=== PATIENT | female | born 1935 | race Caucasian/White ===

== ENCOUNTER 2019-06-27 04:10 | Outpatient (RCR) | payer MEDICAID, SELFPAY | END 2019-07-19 00:01 | LOC: LAB 04:10 | PROVIDERS: Family Provider Family Medicine; Visit Provider Nurse Practitioner Family | DX: R63.4 Abnormal weight loss (principal); I48.91 Unspecified atrial fibrillation; N39.0 Urinary tract infection, site not specified; E11.22 Type 2 diabetes mellitus with diabetic chronic kidney disease; I12.9 Hypertensive chronic kidney disease with stage 1 through stage 4 chronic kidney disease, or unspecified chronic kidney disease; N18.9 Chronic kidney disease, unspecified | CPT/HCPCS: 36415; 84134 ==

== ENCOUNTER 2020-04-28 22:11 | Inpatient (IN) | payer MEDICAID, SELFPAY ==
--- NOTE | 2020-04-28 22:15 | PC.NURSE ---
pre-existing pressure wound noted to coccyx area
--- NOTE | 2020-04-28 22:26 | XRR_ITS ---
PROCEDURE INFORMATION: Exam: XR Chest, 1 View Exam date and time: 04/28/2020 10:29 PM Age: 84 years old Clinical indication: Fever; Prior surgery; Surgery date: 6+ months; Surgery type: Pacer; Patient HX: Unresponsive - ? sepsis; Additional info: Altered mental status TECHNIQUE: Imaging protocol: XR of the chest Views: 1 view. COMPARISON: No relevant prior studies available. FINDINGS: Tubes, catheters and devices: A pacemaker device is present, and its leads are in appropriate position. Lungs: The lungs are hyperinflated with interstitial prominence compatible with mild fibrosis versus atelectasis. There is no lobar consolidation. Pulmonary vascularity is within normal limits. Pleural space: Unremarkable. No pleural effusion. No pneumothorax. Heart/Mediastinum: Unremarkable. No cardiomegaly. Bones/joints: Osteopenia and diffuse moderate to severe degenerative changes are noted. XR/XR chest 1V portable [id number] IMPRESSION: The lungs are hyperinflated with interstitial prominence compatible with mild fibrosis versus atelectasis.
[2020-04-28 22:27] VITALS: BP 75/42; PULSE 96; RESP 18; TEMP 38.2; O2SAT 95; BMI 31.3
--- NOTE | 2020-04-28 22:28 | ECG_ITS ---
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 Measurements Intervals [place] Rate: 88 P: -84 AL: 142 QRS: -6 QRSD: 94 T: 49 QT: 384 QTc: 466 Interpretive Statements ECTOPIC ATRIAL RHYTHM NONSPECIFIC ST & T-WAVE ABNORMALITY Compared to ECG 02/10/2017 14:18:10 T-wave abnormality now present Electronically Signed On 04-29-2020 18:16:03 CDT by Selma Rosas M.D. [id number]
--- NOTE | 2020-04-28 22:29 | CTR_ITS ---
PROCEDURE INFORMATION: Exam: CT Head Without Contrast Exam date and time: 04/28/2020 10:35 PM Age: 84 years old Clinical indication: Altered mental status/memory loss; Confusion or disorientation; Patient HX: Nh PT unresponsive, ? sepsis; Additional info: AMS TECHNIQUE: Imaging protocol: Computed tomography of the head without contrast. Radiation optimization: All CT scans at this facility use at least one of these dose optimization techniques: automated exposure control; mA and/or kV adjustment per patient size (includes targeted exams where dose is matched to clinical indication); or iterative reconstruction. COMPARISON: CT head wo con* [id number] 06/03/2017 4:35 PM RADIATION DOSE METRICS: Total DLP (mGy-cm): 915.82 FINDINGS: Brain: There is volume loss and periventricular low density compatible with chronic small vessel disease changes. There is no acute hemorrhage, edema or mass effect. There is unchanged encephalomalacia in the right frontal lobe. Cerebral ventricles: No ventriculomegaly. Bones/joints: Unremarkable. No acute fracture. Paranasal sinuses: There is a small air-fluid level in the left maxillary sinus. Mastoid air cells: Visualized mastoid air cells are well aerated. Soft tissues: Unremarkable. CT/CT head wo con* [id number] IMPRESSION: 1. No acute intracranial abnormality. 2. There is a small air-fluid level in the left maxillary sinus. Radiation Dose CTDIVOL = (mGy): DLP = 915.82 (mGy-cm)
[2020-04-28 22:38] LABS: ABG PCO2 26.9 mmHg (35-45); ABG PH Result 7.38 (7.35-7.45); Base Excess ABG -7.6 mmol/L (-2.0-2.0); Blood Gas Allen Test Pos; Blood Gas Sample Site Radial, right; Blood Gas Sample Type Arterial; HCO3 ABG 15.9 mmol/L (22-26); Oxygen Device NC; PO2 ABG 87.7 mmHg (80.0-100.0)
[2020-04-28 22:46] LABS: Basophils % 0.5 %; Eosinophils % 0.3 %; Hematocrit 42.4 % (37.0-47.0); Hemoglobin 13.1 g/dL (11.5-15.3); Lymphocytes # 0.4 10^3/uL (0.8-4.8); Lymphocytes % 5.5 %; Mean Corpuscular HGB Conc 30.9 g/dL (30.0-36.0); Mean Corpuscular Hemoglobin 29.9 pg (28.0-34.0); Mean Corpuscular Volume 96.8 fL (81-99); Mean Platelet Volume 11.7 fL (7.4-10.4); Monocytes # 0.3 10^3/uL (0.2-0.9); Monocytes % 3.9 %; Neutrophils # 6.78 10^3/uL (1.8-7.7); Neutrophils % 89.3 %; Nucleated Red Blood Cells % 0 %; Platelet Count 166 10^3/cmm (130-400); Red Blood Count 4.38 10^6/uL (4.1-5.3); Red Cell Distribution Width 13.5 % (12.1-15.1); White Blood Count 7.6 10^3/uL (4.0-10.0)
[2020-04-28 23:02] LABS: INR 1.68 (0.8-1.2)
[2020-04-28] MEDS: vancomycin 1,000 MG in sodium chloride 0.9% 250 ML 250 MG IV (23:02)
[2020-04-28] MEDS: sodium chloride 0.9% 1,000 ML 999 ML IV (23:02)
[2020-04-28] MEDS: ondansetron 2 mg/ML SDV 2 mL 4 MG IVP (23:03)
--- NOTE | 2020-04-28 23:07 | W.ED.GENADLT ---
HPI - General Adult General: Chief complaint: General Medical Stated complaint: POSSIBLE SEPSIS Time Seen by Provider: 04/28/20 22:23 Source: patient and EMS Mode of arrival: EMS Limitations: altered mental status History of Present Illness: HPI narrative: Ms. Fenton is an 84-year-old female sent in by [facility] with report of altered mental status. She was diagnosed with a urinary tract infection approximately 3 to 4 days ago started on Macrobid for E. coli that grew out of her urine. It was susceptible to Macrobid but despite the medicine the patient has progressively declined. She is become more sleepy and somnolent and less interactive. She is not wanting to eat or drink much. Tonight she had a fever and was hypotensive and they elected to send her here to the hospital. On arrival the patient is lethargic but does respond to verbal stimuli and answers basic yes/no questions. Further history is taken from longterm paperwork and old information in the computer system. Patient arrives lethargic, hypotensive and appears severely ill. Review of Systems General: Reports: ROS unobtainable due to mental status PFSH ED PFSH: Medical History (Updated 04/28/20 @ 23:09 by Isabelle Simeon) Diabetes mellitus Glaucoma History of recurrent UTIs Hypertension Surgical History (Updated 04/28/20 @ 23:09 by Isabelle Simeon) H/O knee surgery H/O: hysterectomy Physical Exam Const: COMMON NORMALS: alert GENERAL APPEARANCE: lethargic NUTRITIONAL APPEARANCE: obese ORIENTATION/CONSCIOUSNESS: Yes lethargic HENMT: COMMON NORMALS: normocephalic, atraumatic, external ears normal, EAC's normal and Normal external nose present HEAD & SCALP: normal to inspection, normocephalic and atraumatic FACE & SINUS: normal facial exam and face symmetric NOSE: Normal external nose present and Normal nares present EXTERNAL EAR: Yes external ears normal EXTERNAL AUDITORY CANAL: EAC's normal MOUTH: lip normal, tongue normal and Abnormal oral and palatal mucosa present other (Dry) Eye: COMMON NORMALS: Equal, round and reactive pupils present and conjunctivae normal GENERAL EYE: appearance normal, both eyes and all related structures ALIGNMENT: Yes alignment normal PERIORBITAL: periorbital findings normal EYELID: eyelids normal CONJUNCTIVA: Yes conjunctivae normal SCLERA: sclerae normal PUPIL: Yes Equal, round and reactive pupils present Neck/C-Spine: COMMON NORMALS: full ROM, no lymphadenopathy, supple, no meningeal signs and no JVD GENERAL: Yes normal visual inspection and Yes trachea midline Chest: COMMONS NORMALS: normal inspection of the chest and normal palpation of entire chest wall Resp: COMMON NORMALS: normal respiratory effort, No retractions, No use of accessory muscles and clear to auscultation bilaterally EFFORT & INSPECTION: Yes able to speak in complete sentences and Yes symmetric chest movement AUSCULTATION: clear to auscultation bilaterally, no crackles, no rales, no rhonchi and no wheezes Cardio: COMMON NORMALS: no JVD, regular rate, regular rhythm, S1 normal heart sound present and S2 normal heart sound present RATE: regular rate RHYTHM: regular rhythm HEART SOUNDS: S1 normal heart sound present, S2 normal heart sound present, no click, no gallops, no murmurs and no rubs GI: COMMON NORMALS: Soft to palpation and No hepatosplenomegaly present PALPATION: Yes Soft to palpation, No Tenderness to palpation present (GI), No Guarding due to palpation present (GI), No Rigid due to palpation, Yes No hepatosplenomegaly present, No Hernia present, No Palpable mass present and No Pulsatile mass present : COMMON NORMALS: Yes no CVA tenderness BLADDER/KIDNEY EXAM: Yes no CVA tenderness EXTERNAL FEMALE EXAM: No Hernia present Back/Pelvis: COMMON NORMALS: no CVA tenderness Extremity: COMMON NORMALS: normal to inspection, full ROM, capillary refill normal, no joint enlargement, no clubbing, cyanosis or edema and no calf tenderness Neuro: COMMON NORMALS: CN's II-XII intact bilaterally, moves all extremities, no focal motor deficits and no sensory deficits noted SENSORIUM/ORIENTATION: Yes alert and Yes lethargic MENINGEAL SIGNS: Yes no meningeal signs SPEECH: speech normal Skin: COMMON NORMALS: no rashes or lesions noted, turgor normal, no jaundice, no petechiae and no mottling GENERAL SKIN EXAM: no rashes or lesions noted and turgor normal Course ED course: 2316 -Case reviewed with the patient's power of assistant county attorney Sarah Fenton, she concurs the patient is to be a DNR and does not want to be intubated for any reason. She is okay with vasopressors as long as they run through a peripheral line and does not want invasive procedures such as central line. Vital Signs: Vital signs: Vital Signs Temperature 100.7 F H 04/28/20 22:27 Pulse Rate 90 04/28/20 23:30 Respiratory Rate 15 04/28/20 23:30 Blood Pressure 91/50 04/28/20 23:30 Pulse Oximetry 97 04/28/20 23:30 MDM - General Adult MDM Narrative: Medical decision making narrative: Mrs. Fenton is a nice 84-year-old female who comes in with a previously diagnosed UTI from an outpatient setting. He is febrile and hypotensive here all these findings are consistent with sepsis caused by the UTI. Given her dose of Primaxin here and she is receiving the sepsis bolus of IV fluids and at this time she is not necessitating any IV vasopressors. I have discussed her care with the family and they do not want to be aggressive with intubation, central lines or other more invasive therapies. They are okay with peripheral vasopressors for a short time. I have endorsed the case to Dr. Stoddard he is agreeable to admission for further evaluation and care. Lab Data: Attestation: I reviewed the patient's lab results. Labs: Lab Results 04/28/20 04/28/20 04/28/20 Range/Units 22:30 22:30 22:30 WBC 7.6 (4.0-10.0) 10^3/ uL RBC 4.38 (4.1-5.3) 10^6/u L Hgb 13.1 (11.5-15.3) g/dL Hct 42.4 (37.0-47.0) % MCV 96.8 (81-99) fL MCH 29.9 (28.0-34.0) pg MCHC 30.9 (30.0-36.0) g/dL RDW 13.5 (12.1-15.1) % Plt Count 166 (130-400) 10^3/c mm MPV 11.7 H (7.4-10.4) fL Neut % (Auto) 89.3 % Lymph % (Auto) 5.5 % [place] % (Auto) 3.9 % Eos % (Auto) 0.3 % Baso % (Auto) 0.5 % Neut # (Auto) 6.78 (1.8-7.7) 10^3/u L Lymph # (Auto) 0.4 L (0.8-4.8) 10^3/u L [place] # (Auto) 0.3 (0.2-0.9) 10^3/u L Eos # (Auto) 0.0 (0.0-0.8) 10^3/u L Baso # (Auto) 0.0 (0.0-0.1) 10^3/u L Nucleated RBC % (a uto) 0 % Nucleated RBCs # 0.0 /100WBC PT 20.30 H (12.1-14.9) SECO NDS INR 1.68 H (0.8-1.2) Specimen Type Arterial Sample Site Radial, right ABG pH 7.38 (7.35-7.45) ABG pCO2 26.9 L (35-45) mmHg ABG pO2 87.7 (80.0-100.0) mmH g ABG HCO3 15.9 L (22-26) mmol/L ABG Base Excess -7.6 L (-2.0-2.0) mmol/ L Rolf Test Pos Hematocrit 41.0 (37-47) % O2 Delivery Device Nc O2 Liters/Min 2.0 % Rod Puller And Coiler ID ellpe Sodium (136-145) mmol/L Potassium (3.5-5.1) mmol/L Chloride (98-107) mmol/L Carbon Dioxide (22-29) mmol/L Anion Gap (5-19) BUN (8-23) mg/dL Creatinine (0.5-0.9) mg/dL GFR Calculation Glucose (65-115) mg/dL Calculated Osmolal ity (285-295) mOsm/k g Lactic Acid (0.5-2.2) mmol/L Calcium (8.5-10.5) mg/dL Magnesium (1.7-2.3) mg/dL Total Bilirubin (0.15-1.2) mg/dL AST (0-32) U/L ALT (0-33) U/L Alkaline Phosphata se (35-105) IU/L Troponin T Baselin e (0-10) ng/L Total Protein (6.6-8.7) g/dL Albumin (3.5-5.2) g/dL Globulin (1.3-4.6) g/dL Lipase (13-60) U/L Urine Color (Yellow) Urine Appearance (CLEAR) Urine pH (5-7) Ur Specific Gravit y (1.005-1.030) Urine Protein (Negative) Urine Glucose (UA) (Normal) Urine Ketones (Negative) Urine Blood (Negative) Urine Nitrate (Negative) Urine Bilirubin (Negative) Urine Urobilinogen (Negative) mg/dL Ur Leukocyte Bety ase (Negative) Urine RBC (0-2) /hpf Urine WBC (0-5) /hpf Ur Squamous Epith Cells (0-5) /hpf Amorphous Sediment Urine Bacteria (NONE) /hpf Urine Mucus /hpf 04/28/20 04/28/20 04/28/20 Range/Units 22:30 22:30 22:30 WBC (4.0-10.0) 10^3/ uL RBC (4.1-5.3) 10^6/u L Hgb (11.5-15.3) g/dL Hct (37.0-47.0) % MCV (81-99) fL MCH (28.0-34.0) pg MCHC (30.0-36.0) g/dL RDW (12.1-15.1) % Plt Count (130-400) 10^3/c mm MPV (7.4-10.4) fL Neut % (Auto) % Lymph % (Auto) % [place] % (Auto) % Eos % (Auto) % Baso % (Auto) % Neut # (Auto) (1.8-7.7) 10^3/u L Lymph # (Auto) (0.8-4.8) 10^3/u L [place] # (Auto) (0.2-0.9) 10^3/u L Eos # (Auto) (0.0-0.8) 10^3/u L Baso # (Auto) (0.0-0.1) 10^3/u L Nucleated RBC % (a uto) % Nucleated RBCs # /100WBC PT (12.1-14.9) SECO NDS INR (0.8-1.2) Specimen Type Sample Site ABG pH (7.35-7.45) ABG pCO2 (35-45) mmHg ABG pO2 (80.0-100.0) mmH g ABG HCO3 (22-26) mmol/L ABG Base Excess (-2.0-2.0) mmol/ L Rolf Test Hematocrit (37-47) % O2 Delivery Device O2 Liters/Min % Rod Puller And Coiler ID Sodium 141 (136-145) mmol/L Potassium 3.7 (3.5-5.1) mmol/L Chloride 113 H (98-107) mmol/L Carbon Dioxide 14 L (22-29) mmol/L Anion Gap 17.7 (5-19) BUN 34 H (8-23) mg/dL Creatinine 1.5 H (0.5-0.9) mg/dL GFR Calculation Not Reportable Glucose 289 H (65-115) mg/dL Calculated Osmolal ity 310 H (285-295) mOsm/k g Lactic Acid 4.2 H* (0.5-2.2) mmol/L Calcium 8.8 (8.5-10.5) mg/dL Magnesium 1.3 L (1.7-2.3) mg/dL Total Bilirubin 0.2 (0.15-1.2) mg/dL AST 18 (0-32) U/L ALT 14 (0-33) U/L Alkaline Phosphata se 79 (35-105) IU/L Troponin T Baselin e 118 H* (0-10) ng/L Total Protein 4.5 L (6.6-8.7) g/dL Albumin 2.8 L (3.5-5.2) g/dL Globulin 1.7 (1.3-4.6) g/dL Lipase 17 (13-60) U/L Urine Color (Yellow) Urine Appearance (CLEAR) Urine pH (5-7) Ur Specific Gravit y (1.005-1.030) Urine Protein (Negative) Urine Glucose (UA) (Normal) Urine Ketones (Negative) Urine Blood (Negative) Urine Nitrate (Negative) Urine Bilirubin (Negative) Urine Urobilinogen (Negative) mg/dL Ur Leukocyte Bety ase (Negative) Urine RBC (0-2) /hpf Urine WBC (0-5) /hpf Ur Squamous Epith Cells (0-5) /hpf Amorphous Sediment Urine Bacteria (NONE) /hpf Urine Mucus /hpf 10/10/20 Range/Units 23:15 WBC (4.0-10.0) 10^3/ uL RBC (4.1-5.3) 10^6/u L Hgb (11.5-15.3) g/dL Hct (37.0-47.0) % MCV (81-99) fL MCH (28.0-34.0) pg MCHC (30.0-36.0) g/dL RDW (12.1-15.1) % Plt Count (130-400) 10^3/c mm MPV (7.4-10.4) fL Neut % (Auto) % Lymph % (Auto) % [place] % (Auto) % Eos % (Auto) % Baso % (Auto) % Neut # (Auto) (1.8-7.7) 10^3/u L Lymph # (Auto) (0.8-4.8) 10^3/u L [place] # (Auto) (0.2-0.9) 10^3/u L Eos # (Auto) (0.0-0.8) 10^3/u L Baso # (Auto) (0.0-0.1) 10^3/u L Nucleated RBC % (a uto) % Nucleated RBCs # /100WBC PT (12.1-14.9) SECO NDS INR (0.8-1.2) Specimen Type Sample Site ABG pH (7.35-7.45) ABG pCO2 (35-45) mmHg ABG pO2 (80.0-100.0) mmH g ABG HCO3 (22-26) mmol/L ABG Base Excess (-2.0-2.0) mmol/ L Rolf Test Hematocrit (37-47) % O2 Delivery Device O2 Liters/Min % Rod Puller And Coiler ID Sodium (136-145) mmol/L Potassium (3.5-5.1) mmol/L Chloride (98-107) mmol/L Carbon Dioxide (22-29) mmol/L Anion Gap (5-19) BUN (8-23) mg/dL Creatinine (0.5-0.9) mg/dL GFR Calculation Glucose (65-115) mg/dL Calculated Osmolal ity (285-295) mOsm/k g Lactic Acid (0.5-2.2) mmol/L Calcium (8.5-10.5) mg/dL Magnesium (1.7-2.3) mg/dL Total Bilirubin (0.15-1.2) mg/dL AST (0-32) U/L ALT (0-33) U/L Alkaline Phosphata se (35-105) IU/L Troponin T Baselin e (0-10) ng/L Total Protein (6.6-8.7) g/dL Albumin (3.5-5.2) g/dL Globulin (1.3-4.6) g/dL Lipase (13-60) U/L Urine Color Yellow (Yellow) Urine Appearance Sl cloudy A (CLEAR) Urine pH 5 (5-7) Ur Specific Gravit y 1.020 (1.005-1.030) Urine Protein 1+ H (Negative) Urine Glucose (UA) Norm (Normal) Urine Ketones 1+ H (Negative) Urine Blood 3+ H (Negative) Urine Nitrate Negative (Negative) Urine Bilirubin 1+ H (Negative) Urine Urobilinogen Norm (Negative) mg/dL Ur Leukocyte Bety ase 2+ H (Negative) Urine RBC Too numerous to c nt H (0-2) /hpf Urine WBC Too numerous to c nt H (0-5) /hpf Ur Squamous Epith Cells None (0-5) /hpf Amorphous Sediment Not Reportable Urine Bacteria 4+ H (NONE) /hpf Urine Mucus 2+ /hpf EKG Data^: EKG 1: Attestation: I personally reviewed and interpreted this EKG as follows: EKG interpretation date: 04/28/20 EKG interpretation time: 23:11 Interpretation: Normal sinus rhythm at 88 beats a minute, no blocks, normal intervals, no acute ST or T wave changes. Computer generated interpretation: Chest X-Ray 04/28/20 22:26 IMPRESSION: The lungs are hyperinflated with interstitial prominence compatible with mild fibrosis versus atelectasis. Head CT 04/28/20 22:29 IMPRESSION: 1. No acute intracranial abnormality. 2. There is a small air-fluid level in the left maxillary sinus. Radiation Dose CTDIVOL = (mGy): DLP = 915.82 (mGy-cm) Coding Level of Care Code ED Chucking Machine Set Up Operator Tool for Chg Fwd Exam Comprehensive
[2020-04-28 23:08] VITALS: BP 69/46; PULSE 90; RESP 15; O2SAT 94
[2020-04-28 23:09] LABS: Lactic Sepsis W/Reflex 4.2 mmol/L (0.5-2.2)
[2020-04-28 23:11] LABS: Alanine Aminotransferase 14 U/L (0-33); Albumin Level 2.8 g/dL (3.5-5.2); Alkaline Phosphatase 79 IU/L (35-105); Anion Gap 17.7 (5-19); Aspartate Amino Transferase 18 U/L (0-32); Blood Urea Nitrogen 34 mg/dL (8-23); Calcium 8.8 mg/dL (8.5-10.5); Carbon Dioxide 14 mmol/L (22-29); Chloride 113 mmol/L (98-107); Globulin 1.7 g/dL (1.3-4.6); Glucose 289 mg/dL (65-115); Lipase 17 U/L (13-60); Magnesium 1.3 mg/dL (1.7-2.3); Osmolality Calculated 310 mOsm/kg (285-295); Potassium 3.7 mmol/L (3.5-5.1); Sodium 141 mmol/L (136-145); Total Bilirubin 0.2 mg/dL (0.15-1.2); Total Protein 4.5 g/dL (6.6-8.7)
[2020-04-28 23:12] VITALS: BMI 21.7
[2020-04-28 23:17] VITALS: BP 75/45; PULSE 90; RESP 17; O2SAT 99
[2020-04-28 23:29] LABS: Troponin(5th) Baseline 118 ng/L (0-10)
[2020-04-28 23:30] VITALS: BP 91/50; PULSE 90; RESP 15; O2SAT 97
[2020-04-28 23:50] LABS: Bilirubin Urine 1+ (Negative); Blood Urine 3+ (Negative); Glucose Urine UA Norm (Normal); Ketones Urine 1+ (Negative); Leukocyte Esterase Urine 2+ (Negative); Nitrate Urine Negative (Negative); Protein Urine 1+ (Negative); Urine Color Yellow (Yellow); Urobilinogen Urine Norm (Negative); pH Urine 5 (5-7)
[2020-04-28 23:51] LABS: Bacteria Urine 4+ /hpf; Mucus Urine 2+ /hpf; RBC Urine TOO NUMEROUS TO CNT /hpf (0-2); WBC Urine TOO NUMEROUS TO CNT /hpf (0-5)
[2020-04-28 23:52] LABS: Add Urine Culture? Yes
[2020-04-29] VITALS (72 sets, daily range): BP systolic 70–141; BP diastolic 38–73; PULSE 59–101; RESP 9–19; TEMP 36.4–36.7; O2SAT 93–100
[2020-04-29] MEDS: sodium chloride 0.9% 1,000 ML 999 ML IV (00:06)
[2020-04-29] MEDS: magnesium sulfate premix 2 GM/50 ML PIGGYBACK IV (00:14)
--- NOTE | 2020-04-29 00:28 | ECG_ITS ---
[facility] Test Date: 2020-04-29 Pat Name: Kelly Fenton Department: Room: ICU11 Gender: Female Medical Administrative: : 1935 Requested By: Isabelle Holland Order Number: [id number] Bhavin MD: Selma Rosas M.D. Measurements Intervals [place] Rate: 76 P: 66 IN: 213 QRS: -11 QRSD: 92 T: 24 QT: 383 QTc: 433 Interpretive Statements SINUS RHYTHM WITH FIRST DEGREE AV BLOCK WITH DEMAND VENTRICULAR PACING LOW QRS VOLTAGE IN PRECORDIAL LEADS [QRS DEFLECTION < 1.0 mV IN CHEST LEADS] NONSPECIFIC ST & T-WAVE ABNORMALITY Compared to ECG 04/28/2020 23:11:14 Low QRS voltage now present Ectopic atrial rhythm no longer present T-wave abnormality still present Electronically Signed On 04-30-2020 20:53:06 CDT by Selma Rosas M.D. [id number]
[2020-04-29 00:30] LABS: Reflex Lactate Order REFLEX LACTIC ORDERD
--- NOTE | 2020-04-29 00:32 | CTR_ITS ---
PROCEDURE INFORMATION: Exam: CT Abdomen And Pelvis Without Contrast Exam date and time: 04/29/2020 1:01 AM Age: 84 years old Clinical indication: Other: Sepsis; Additional info: R/O obstructive uropathy TECHNIQUE: Imaging protocol: Computed tomography of the abdomen and pelvis without contrast. Radiation optimization: All CT scans at this facility use at least one of these dose optimization techniques: automated exposure control; mA and/or kV adjustment per patient size (includes targeted exams where dose is matched to clinical indication); or iterative reconstruction. COMPARISON: CT abdomen pelvis w con* [id number] 09/21/2016 11:47 AM RADIATION DOSE METRICS: Total DLP (mGy-cm): 2015.36 FINDINGS: Lungs: Bibasilar infiltrates versus atelectasis are seen with pleural thickening. A pacemaker is seen. Liver: Normal. No mass. Gallbladder and bile ducts: Multiple tiny calcified gallstones and biliary sludge is present. No ductal dilation. Pancreas: Normal. No ductal dilation. Spleen: Normal. No splenomegaly. Adrenals: Normal. No mass. Kidneys and ureters: Normal. No hydronephrosis. Stomach and bowel: Unremarkable. No obstruction. No mucosal thickening. Appendix: No evidence of appendicitis. Unremarkable appendix. Intraperitoneal space: Unremarkable. No free air. No significant fluid collection. Vasculature: Unremarkable. No abdominal aortic aneurysm. Lymph nodes: Unremarkable. No enlarged lymph nodes. Urinary bladder: The bladder is empty with Rosario catheter in place. Reproductive: The uterus is surgically absent. Unremarkable as visualized. Bones/joints: Multilevel degenerative changes are present. No acute fracture. Soft tissues: Unremarkable. CT/CT abdomen pelvis con [id number] IMPRESSION: 1. No acute findings. Specifically negative for obstructive uropathy. 2. A Rosario catheter is present in the bladder. 3. Gallstones and biliary sludge are seen. 4. The uterus is surgically absent. 5. Bibasilar infiltrates versus atelectasis and pleural thickening is seen. 6. Multilevel degenerative changes are seen in the lumbar spine. Radiation Dose CTDIVOL = (mGy): DLP = 2014.36 (mGy-cm)
[2020-04-29] MEDS: sodium chloride 0.9% 2,721.54 ML 999 ML IV (01:03)
--- NOTE | 2020-04-29 01:50 | PM.HP ---
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 I spoke to patient's nurse at [facility], she tells me that at baseline patient is alert oriented x3, she has had some degree of a slow decline over the last month, Britany lift dependent, can carry a conversations, but has had a slow decline over the last month. There was concerns for UTI over the week, UA drawn on Thursday showed E. coli, patient was placed on Macrobid twice daily. This morning patient according to nurses was doing fine, carry out conversations, had no particular complaints, this evening patient was acting more confused, her blood pressures were in the 70s over 40s, there was concerns for worsening UTI, so patient was brought to the ER for further evaluation. In the ER patient was found to be septic secondary to urinary tract infection, hospitalist team was called for admission. Currently patient is alert oriented x1, does not answer questions appropriately, is confused, niece at bedside. Review of Systems General: Reports: ROS unobtainable due to medical condition Medications/Allergies Allergies Allergy/AdvReac Type Severity Reaction Status Date / Time influenza virus vaccine ts Allergy Unknown Verified 04/28/20 22:34 [id number] (36 mos,up) [From Flulaval] PFSH Acute PFSH: Medical History Diabetes mellitus Glaucoma History of recurrent UTIs Hypertension Surgical History H/O knee surgery H/O: hysterectomy Family History (Updated 04/29/20 @ 01:58 by Jayden Stoddard MD) Other Diabetes Social History (Updated 04/29/20 @ 01:57 by Jayden Stoddard MD) Smoking and tobacco status: never smoked Alcohol intake: never Substance/Drug Use: never Vitals/I&O/Wt Last Vital Signs Temp 100.7 F H 04/28/20 22:27 Pulse 89 04/29/20 01:42 Resp 13 04/29/20 01:42 BP 101/54 04/29/20 01:42 Pulse Ox 98 04/29/20 01:42 04/28/20 04/28/20 04/29/20 14:59 22:59 06:59 Intake Total 2500.318 / 2500.318 Balance 2500.318 / 2500.318 Weight last 48 hrs Weight 88.904 kg Weight 90.718 kg Physical Exam Const: COMMON NORMALS: no acute distress and alert NUTRITIONAL APPEARANCE: obese ORIENTATION/CONSCIOUSNESS: Yes awake and Yes confused; not oriented to person, not oriented to place and not oriented to time HENMT: COMMON NORMALS: normocephalic HEAD & SCALP: normocephalic Eye: COMMON NORMALS: Equal, round and reactive pupils present, EOMs intact bilaterally and no papilledema GENERAL EYE: appearance normal, both eyes and all related structures PUPIL: Yes Equal, round and reactive pupils present DIRECT OPHTHALMOSCOPY: Yes no papilledema Neck/C-Spine: COMMON NORMALS: full ROM, no lymphadenopathy, no JVD and Thyroid normal THYROID: Thyroid normal Lymph: LYMPHATIC: no lymphadenopathy noted Resp: COMMON NORMALS: normal respiratory effort, No retractions, No use of accessory muscles and clear to auscultation bilaterally AUSCULTATION: clear to auscultation bilaterally Cardio: COMMON NORMALS: no JVD, regular rate, regular rhythm, S1 normal heart sound present, S2 normal heart sound present, No gallops present (Cardio), No clicks present (Cardio) and No murmurs present (Cardio) RATE: regular rate RHYTHM: regular rhythm HEART SOUNDS: S1 normal heart sound present and S2 normal heart sound present GI: COMMON NORMALS: Normal to inspection, nondistended, normoactive bowel sounds present, Soft to palpation, non-tender and No hepatosplenomegaly present PALPATION: Yes Soft to palpation and Yes No hepatosplenomegaly present Extremity: NARRATIVE EXTREMITY EXAM: Flexion contracture of left upper and left lower extremity, favors the left side Neuro: SENSORIUM/ORIENTATION: Yes alert, No oriented to person, No oriented to place, No oriented to time and Yes fluctuating sensorium Urinary Catheter Management^: Rosario: Cath Placed During This Visit: yes Reason for Continuing Indwelling Catheter: Accurate Measurement of Urinary Output in Critically Ill Patients Urinary Catheter Date of Insertion: 04/28/20 Urinary Catheter Time of Insertion: 23:07 Sepsis: Is patient septic: Yes Focused sepsis exam performed: Yes Date exam was performed: 04/29/20 Time exam was performed: 01:30 Data : 04/28/20 22:30 04/28/20 22:30 Micro: Microbiology 04/28/20 22:30 Blood Culture - Preliminary Blood SPECIMEN COLLECTED 04/28/20 22:30 Blood Culture - Preliminary Blood SPECIMEN COLLECTED A&P Assessment and plan (1) Sepsis secondary to UTI: -White blood cell count 7.6, INR 1.68, creatinine 1.5, lactic acid 4.2, UA positive for ketones, blood, leukocyte Estrace -Blood pressure on presentation was 75/42, T-max 100.7, pulse 96, respiratory rate 18, saturating 95% on room air -After septic fluid bolus blood pressure improved into the 100s over 60s, but trended downwards, patient was started on Levophed drip, currently going at 2.5 mcg -Patient is alert, does not answer questions appropriately, is confused Plan: -Patient is DNR/DNI -Patient's family does not want aggressive interventions -We will moved to the ICU as she is on Levophed drip, attempt to wean off Levophed -I have started her on midodrine 10 mg every 8 hours in attempt to get her off Levophed -continue Primaxin for UTI -Monitor urine output, monitor creatinine, monitor blood cultures, urine cultures -We will obtain a CT abdomen and pelvis without contrast to evaluate for obstructive uropathy Status: Acute (2) Septic encephalopathy: -Secondary to UTI, sepsis Status: Acute (3) GRETTA (acute kidney injury): -Creatinine 1.5 -Has finished sepsis bolus -Gentle IV hydration at 50 cc an hour, as due to risk of fluid overload Status: Acute (4) NSTEMI (non-ST elevated myocardial infarction): -Baseline troponin 118 -no acute ST-T wave changes -Likely type II NSTEMI, supply demand ischemia related to sepsis -Monitor troponins, monitor EKGs, monitor telemetry -Continue aspirin 81 mg daily, atorvastatin 40 mg daily Status: Acute (5) Atrial fibrillation: -Continue Eliquis 2.5 mg twice daily Status: Acute (6) History of CVA with residual deficit: -CT of the head shows an encephalomalacia of the right frontal lobe -Patient has flexion contracture of left upper left lower extremity, favors the left side -Niece at bedside tells me the patient has not had a stroke, that her symptoms are from her previous episodes of sepsis Status: Acute (7) Diabetes mellitus: -Lantus 25 units at bedtime on hold -Low-dose sliding scale Status: Acute (8) Hypertension: Status: Acute (9) Lactic acidosis: Status: Acute Additional A&P Information DNR/DNI Eliquis for DVT prophylaxis Attestations Medical Necessity Statement*: Patient requires hospitalization, inpatient, greater than 2 midnights, for UTI with sepsis, GRETTA,nstemi Coding Level of Care Code Acute Debt Collection Specialist for [facility] Fwd Diagnoses Sepsis secondary to UTI A41.9; N39.0 Septic encephalopathy G93.41 GRETTA (acute kidney injury) N17.9 NSTEMI (non-ST elevated myocardial infarction) I21.4 Atrial fibrillation I48.91 History of CVA with residual deficit I69.30 Diabetes mellitus E11.9 Hypertension I10 Lactic acidosis E87.2 Sepsis Evaluation Sepsis screening result: Sepsis Risk Current stage of sepsis: sepsis Initial hypotension due to sepsis/infection: SBP < 90 mmHg Possible source: genitourinary Focused Exam Vital Signs Temp Pulse Pulse Resp BP BP Pulse Ox 04/29/20 01:42 89 13 101/54 98 04/29/20 01:30 91 15 97/49 99 04/29/20 01:15 91 14 120/51 99 04/29/20 01:13 88 16 105/44 100 04/29/20 01:00 91 15 129/49 100 04/29/20 00:54 79 13 70/43 98 04/29/20 00:15 85 15 103/60 100 04/29/20 00:00 101 H 16 103/60 100 04/28/20 23:30 90 15 91/50 97 04/28/20 23:17 90 17 75/45 99 04/28/20 23:08 90 15 69/46 94 04/28/20 22:27 100.7 F H 96 18 75/42 95 Cardiovascular exam: Present RRR, S1 and S2 Capillary refill: < 3 Seconds Peripheral pulse strength: 2+ Slightly Diminished Peripheral pulse location: Pedal Date exam was performed: 04/29/20 Time exam was performed: 02:00
[2020-04-29] MEDS: midodrine 5 mg TABLET 10 MG PO ×3 (02:14→18:00)
--- NOTE | 2020-04-29 02:31 | PC.NURSE ---
Rapid coronavirus test completed and sent to lab.
[2020-04-29 02:41] LABS: Glucose Point of Care 161 mg/dL (70-110)
[2020-04-29] MEDS: lactated ringers 1,000 ML 75 ML IV ×2 (02:45→20:15)
--- NOTE | 2020-04-29 02:56 | PC.NURSE ---
Patient's blood pressure dropped 56/45, levophed drip titrated up to 5mcg/min.
[2020-04-29 03:01] LABS: SARS Covid-2 Antigen Negative (Negative)
[2020-04-29 03:58] LABS: Lactic Acid level (Lactate) 2.3 mmol/L (0.5-2.2)
[2020-04-29 04:03] LABS: Troponin T (5th) Once 116 ng/L (0-10)
--- NOTE | 2020-04-29 04:28 | ECG_ITS ---
[facility] Test Date: 2020-04-29 Pat Name: Kelly Fenton Department: Room: ICU11 Gender: Female [employer] Floor Supervisor: : 1935 Requested By: Isabelle Holland Order Number: [id number] Bhavin MD: Selma Rosas M.D. Measurements Intervals [place] Rate: 86 P: -88 CA: 132 QRS: 2 QRSD: 93 T: 86 QT: 381 QTc: 456 Interpretive Statements ECTOPIC ATRIAL RHYTHM NONSPECIFIC T-WAVE ABNORMALITY Compared to ECG 04/29/2020 00:31:48 Ventricular-paced complex(es) or rhythm no longer present T-wave abnormality still present Electronically Signed On 04-30-2020 20:46:46 CDT by Selma Rosas M.D. [id number]
--- NOTE | 2020-04-29 04:33 | PC.NURSE ---
Admit Note Arrived from ER via gurney and this time. Pt drowsy and awakens to stimulation, unable to obtain much information due to drifting back off to sleep. Levophed drip infusing at 3mcg on arrival to unit. Left arm contracture noted on admit, pupils are unequal. Left pupil is size 2 and reactive. Right pupil is irregular in shape and non-reactive. Sacral ulcer noted to buttocks with blanchable erythema surrounding. Bilateral groin and perineum is excoriated. Bilateral breast and abdominal folds excoriated as well. Oriented to room and call light.
[2020-04-29 05:35] LABS: Basophils # 0.1 10^3/uL (0.0-0.1); Basophils % 0.5 %; Eosinophils # 0.1 10^3/uL (0.0-0.8); Eosinophils % 0.7 %; Hematocrit 48.4 % (37.0-47.0); Hemoglobin 14.4 g/dL (11.5-15.3); Lymphocytes # 1.2 10^3/uL (0.8-4.8); Mean Corpuscular HGB Conc 29.8 g/dL (30.0-36.0); Mean Corpuscular Hemoglobin 29.9 pg (28.0-34.0); Mean Corpuscular Volume 100.4 fL (81-99); Mean Platelet Volume 11.5 fL (7.4-10.4); Monocytes # 0.6 10^3/uL (0.2-0.9); Monocytes % 6.1 %; Neutrophils # 8.15 10^3/uL (1.8-7.7); Neutrophils % 79.8 %; Nucleated Red Blood Cells % 0 %; Platelet Count 185 10^3/cmm (130-400); Red Blood Count 4.82 10^6/uL (4.1-5.3); Red Cell Distribution Width 13.6 % (12.1-15.1); White Blood Count 10.2 10^3/uL (4.0-10.0)
[2020-04-29 06:02] LABS: Troponin 5 6HR 93.95 ng/L (0-10)
--- NOTE | 2020-04-29 06:08 | PC.NURSE ---
Admission assessment admission assessment information obtained from MAHOGANY Stern at [facility]. DPOA was faxed to facility and placed in chart.
[2020-04-29 08:45] LABS: Anion Gap 12.3 (5-19); Blood Urea Nitrogen 30 mg/dL (8-23); Carbon Dioxide 17 mmol/L (22-29); Chloride 115 mmol/L (98-107); Glucose 185 mg/dL (65-115); Osmolality Calculated 303 mOsm/kg (285-295); Potassium 3.3 mmol/L (3.5-5.1); Sodium 141 mmol/L (136-145)
[2020-04-29] MEDS: hydrocortisone 100 mg/2 mL SDV IVP (09:12)
[2020-04-29] MEDS: apixaban 5 mg Tablet 2.5 MG PO ×2 (09:13→18:00)
[2020-04-29] MEDS: aspirin 81 mg EC Tablet PO (09:13)
[2020-04-29] MEDS: sennosides-docusate Tablet 1 TAB PO ×2 (09:13→18:00)
[2020-04-29] MEDS: pantoprazole DR 40 mg Tablet PO (09:14)
[2020-04-29] MEDS: sodium chloride 0.9% 250 ML IV (09:14)
[2020-04-29] MEDS: gabapentin 300 mg Capsule PO ×2 (09:14→18:00)
--- NOTE | 2020-04-29 10:56 | PM.PN ---
Subjective Subjective: Interval history: She is somewhat somnolent, but wakes up. Answers questions. [facility]. Says she was having pain in her lower abdomen earlier, but this is now better. Denies any nausea vomiting. Denies any headache, muscle ache or chest pain. Promptly falls back asleep. Vitals/I&O/Wt Last Vital Signs Temp 97.6 F 04/29/20 09:05 Pulse 81 04/29/20 10:00 Resp 14 04/29/20 10:00 BP 106/47 04/29/20 10:00 Pulse Ox 97 04/29/20 10:00 04/28/20 04/29/20 04/29/20 22:59 06:59 14:59 Intake Total 2546.533 / 2546.533 240 / 240 Output Total 175 / 175 Balance 2371.533 / 2371.533 240 / 240 Weight last 48 hrs Weight 88.904 kg Weight 90.718 kg Physical Exam Const: COMMON NORMALS: no acute distress; negative for patient oriented x3 NUTRITIONAL APPEARANCE: obese HENMT: COMMON NORMALS: oropharynx normal Neck/C-Spine: COMMON NORMALS: no JVD Resp: COMMON NORMALS: normal respiratory effort and clear to auscultation bilaterally AUSCULTATION: clear to auscultation bilaterally Cardio: COMMON NORMALS: no JVD, regular rhythm, S1 normal heart sound present, S2 normal heart sound present and No murmurs present (Cardio) RHYTHM: regular rhythm HEART SOUNDS: S1 normal heart sound present and S2 normal heart sound present GI: COMMON NORMALS: Normal to inspection, nondistended, normoactive bowel sounds present, Soft to palpation and non-tender PALPATION: Yes Soft to palpation Extremity: COMMON NORMALS: no joint enlargement and no pedal edema Neuro: COMMON NORMALS: moves all extremities; negative for patient oriented x3 Skin: COMMON NORMALS: no rashes or lesions noted GENERAL SKIN EXAM: no rashes or lesions noted Urinary Catheter Management^: Rosario: Cath Placed During This Visit: yes Reason for Continuing Indwelling Catheter: Accurate Measurement of Urinary Output in Critically Ill Patients Urinary Catheter Date of Insertion: 04/28/20 Urinary Catheter Time of Insertion: 23:07 Data : 04/29/20 05:05 04/29/20 08:10 Micro: Microbiology 04/28/20 22:30 Blood Culture - Preliminary Blood SPECIMEN COLLECTED 04/28/20 22:30 Blood Culture - Preliminary Blood SPECIMEN COLLECTED A&P Assessment and plan (1) Sepsis secondary to UTI: Complicated UTI with septic shock, persistent need for pressor support, currently on 3 mcg. Still soft to mean arterial pressure in the 50s. She received 30 cc/kg hydration. Will give additional bolus to 50 cc saline and see how she responds. Due to persistent septic shock we will give a dose of hydrocortisone. Continue reassessments. Wean pressors as tolerating. Maintain mean arterial pressure of 60 or above. Continue IV antibiotics. Continue supportive care. Follow cultures. No sign of obstructive uropathy on abdomen pelvis CT. Incidentally noted gallstones, biliary sludge. Bibasilar infiltrates atelectasis versus pleural thickening. Status: Acute (2) Septic encephalopathy: -Secondary to UTI, sepsis. Continue treatment as above. Status: Acute (3) GRETTA (acute kidney injury): -Creatinine stabilized at 1.5. Support blood pressure. Avoid hypotension. Additional small bolus. -Gentle IV hydration at 50 cc an hour, as due to risk of fluid overload Status: Acute (4) NSTEMI (non-ST elevated myocardial infarction): Denies chest pain. Without significant rise in troponin. -Likely type II NSTEMI, supply demand ischemia related to sepsis Consider additional evaluation for CAD after recovers. -Continue aspirin 81 mg daily, atorvastatin 40 mg daily Status: Acute (5) Atrial fibrillation: -Continue Eliquis 2.5 mg twice daily Status: Acute (6) History of CVA with residual deficit: -CT of the head shows an encephalomalacia of the right frontal lobe -Patient has flexion contracture of left upper left lower extremity, favors the left side -Niece at bedside tells me the patient has not had a stroke, that her symptoms are from her previous episodes of sepsis Status: Acute (7) Diabetes mellitus: -Lantus 25 units at bedtime on hold -Low-dose sliding scale Status: Acute (8) Hypertension: Status: Acute (9) Lactic acidosis: Status: Acute Additional A&P Information DNR/DNI Eliquis for DVT prophylaxis Attestations Medical Necessity Statement*: Continue admission for assessment management of septic shock, complicated urinary tract infection. Coding Level of Care Code Acute Branch Administrator for [facility] Fwd Exam Comprehensive Diagnoses Sepsis secondary to UTI A41.9; N39.0 Septic encephalopathy G93.41 GRETTA (acute kidney injury) N17.9 NSTEMI (non-ST elevated myocardial infarction) I21.4 Atrial fibrillation I48.91 History of CVA with residual deficit I69.30 Diabetes mellitus E11.9 Hypertension I10 Lactic acidosis E87.2
[2020-04-29 11:51] LABS: Glucose Point of Care 186 mg/dL (70-110)
[2020-04-29 11:51] LABS: Glucose Point of Care 197 mg/dL (70-110)
[2020-04-29 12:39] LABS: Anion Gap 11.5 (5-19); Blood Urea Nitrogen 31 mg/dL (8-23); Calcium 7.9 mg/dL (8.5-10.5); Carbon Dioxide 19 mmol/L (22-29); Chloride 116 mmol/L (98-107); Glucose 153 mg/dL (65-115); Magnesium 1.5 mg/dL (1.7-2.3); Osmolality Calculated 306 mOsm/kg (285-295); Potassium 3.5 mmol/L (3.5-5.1); Sodium 143 mmol/L (136-145)
[2020-04-29 16:56] LABS: Glucose Point of Care 182 mg/dL (70-110)
[2020-04-29] MEDS: atorvastatin 40 mg Tablet PO (20:47)
[2020-04-30] VITALS (19 sets, daily range): BP systolic 90–132; BP diastolic 40–73; PULSE 59–98; RESP 10–18; TEMP 36.2–36.3; O2SAT 94–97
[2020-04-30] MEDS: midodrine 5 mg TABLET 10 MG PO ×3 (01:51→16:59)
--- NOTE | 2020-04-30 01:58 | PC.NURSE ---
Patient refusing lipitor and midodrine. Multiple attempts made and patient continues to refuse.
--- NOTE | 2020-04-30 04:26 | PC.NURSE ---
Patient is no longer verbally responding. Had one short episode of bradycardia with lowest rate of 39. Heart Rate immediately rebounded to previous rate of 60s. Patient will not open eyes or respond verbally. Dr. Stoddard notified. As patient is AND no new orders. Will continue to monitor and give Dr. Stoddard update in one hour.
--- NOTE | 2020-04-30 04:58 | CTR_ITS ---
PROCEDURE INFORMATION: Exam: CT Head Without Contrast Exam date and time: 04/30/2020 5:36 AM Age: 84 years old Clinical indication: Altered mental status/memory loss; Patient HX: Sudden onset of decreased responsiveness. History of prior CVA. ; Additional info: Mental status change TECHNIQUE: Imaging protocol: Computed tomography of the head without contrast. Radiation optimization: All CT scans at this facility use at least one of these dose optimization techniques: automated exposure control; mA and/or kV adjustment per patient size (includes targeted exams where dose is matched to clinical indication); or iterative reconstruction. Other technique: STROKE PROTOCOL was implemented. COMPARISON: CT head wo con* [id number] 2020-04-28 22:36 RADIATION DOSE METRICS: Total DLP (mGy-cm): 1047.63 FINDINGS: Brain: Diffuse moderate cerebral age related volume loss. Moderate patchy low attenuation in the white matter compatible with moderate chronic small vessel ischemic disease. No midline shift, mass, fluid collection, or evidence of hemorrhage. Small chronic right frontal cortical infarct. Cerebral ventricles: Ventricular enlargement proportional to volume loss. Bones/joints: Unremarkable. No acute fracture. Paranasal sinuses: Visualized sinuses are unremarkable. No fluid levels. Mastoid air cells: Visualized mastoid air cells are well aerated. Soft tissues: Unremarkable. CT/CT head wo con* [id number] IMPRESSION: Moderate involutional changes, no acute intracranial abnormality. ASSESSMENT: ASPECTS ([place] Stroke Program Early CT Score) is 10. Radiation Dose CTDIVOL = (mGy): DLP = 1047.63 (mGy-cm)
--- NOTE | 2020-04-30 05:00 | PC.NURSE ---
Dr. Stoddard at bedside. Evaluated patient and requested stat CT of head without contrast.
--- NOTE | 2020-04-30 05:59 | PM.SAN ---
Stroke Alert Activation Last Known Normal/at Baseline: < 1 hour ago Other Last Known Well Infomation: Last well normal 5 AM Stroke Alert Activated by: Dr. Stoddard Patient is admitted to [facility] for sepsis secondary to UTI, she has been weaned off Levophed, clinically improving, fairly normotensive throughout the day, pulse rate between 60-59, saturating high 90s on room air. At roughly 4:50 AM, patient was due for morning medications, however patient refused, at roughly 5 AM when nurse came to assess patient, patient was not responding appropriately, would not answer questions, would open her up her eyes to commands. I assessed the patient 20 minutes later, patient would open her eyes to sternal rub, would not follow commands, normotensive, saturating in the high 90s on room air, had sinus bradycardia at roughly 450, no other acute telemetry events. Patient's upper and lower extremities fall to the bed against gravity, does not localize pain, does not withdraw from pain, pupils are pinpoint, reactive to light, tends to prefer the right in terms of gaze, NIH stroke scale was roughly 20, stroke code was activated, patient was taken to CT scan, I do not see any evidence of intracranial bleed, I spoke to [facility] telemetry stroke, given patient's comorbidities previous history of right-sided CVA with left-sided deficits, history of atrial fibrillation on Eliquis, she was deemed a poor candidate for TPA. But they also felt that her symptoms were quite global, and there could be other differentials. Will await morning labs, and we will see what her creatinine is, CT angiogram of the chest ordered, allow for permissive hypertension, IV fluids started, she is already on aspirin, statin, Eliquis. Blood sugar 79. I have reassessed the patient at 610, patient does not open her eyes to commands, does not respond to sternal rub, seems a lot like a brainstem stroke, I am awaiting her morning labs, head CT shows no acute intracranial abnormality patient is DNR/DNI. I spoke to patient's niece, advised her of my concerns, went over the case with her, she voiced understanding, all questions answered. Niece tells me that patient has done this in the longterm and her blood sugars have been high and when she has a urinary tract infection. Advised niece that we are concerned for significant stroke, or awaiting further work-up, will advise her of any changes. She voiced her setting, all questions answered Stroke Alert Activation Date: 04/30/20 Stroke Alert Activation Time: 05:40 Stroke MD @ Bedside Date: 04/30/20 Stroke MD @ Bedside Time: 05:40 NIH Stroke Scale Time: 05:40 NIH Stroke Scale Score: NIH Stroke Scale Score: 20 NIH stroke score NIHSS: Level Of Consciousness - 1a: 0 Level Of Consciousness Questions - 1b: Neither Correct Level Of Consciousness Commands - 1c: Neither Correct Best Gaze - 2: Partial Gaze Palsy Visual Schneider - 3: No Visual Loss Facial Palsy - 4: Normal Motor Arm Right - 5: No Effort Against Norman Motor Arm Left - 5: No Effort Against Norman Motor Leg Right - 6: No Effort Against Norman Motor Leg Left - 6: No Effort Against Norman Best Language - 9: Mute; Global Aphasia Extinction And Inattention - 11: 2 Stroke Alert Data/Treatment Time to CT of Head: 06:00 CT Results Date: 04/30/20 CT Results Time: 06:00 CT Impression: No acute intracranial bleed as per my interpretation, awaiting official read Stroke Risk Factors: atrial fibrillation, hyperlipidemia, hypertension and obesity tPA Contraindication: tPA Contraindication: Medical contraindication Critical Care Time Critical Care Time: 30 - 74 mins Coding Level of Care Code Acute Lead Application Architect for Vaishali Falk
[2020-04-30 06:00] LABS: Glucose Point of Care 78 mg/dL (70-110)
--- NOTE | 2020-04-30 06:15 | PC.NURSE ---
STROKE ALERT 0530 Dr. Stoddard at bedside and evaluating patient and asked to call Stroke Alert. Patient emergently taken to CT for CT head.
[2020-04-30 06:23] LABS: Basophils % 0.6 %; Eosinophils # 0.3 10^3/uL (0.0-0.8); Eosinophils % 3.6 %; Hematocrit 39.2 % (37.0-47.0); Hemoglobin 12.5 g/dL (11.5-15.3); Lymphocytes # 1.1 10^3/uL (0.8-4.8); Lymphocytes % 15.9 %; Mean Corpuscular HGB Conc 31.9 g/dL (30.0-36.0); Mean Corpuscular Hemoglobin 30.8 pg (28.0-34.0); Mean Corpuscular Volume 96.6 fL (81-99); Mean Platelet Volume 11.4 fL (7.4-10.4); Monocytes # 0.4 10^3/uL (0.2-0.9); Monocytes % 5.3 %; Neutrophils # 5.21 10^3/uL (1.8-7.7); Neutrophils % 74.3 %; Nucleated Red Blood Cells % 0 %; Platelet Count 170 10^3/cmm (130-400); Red Blood Count 4.06 10^6/uL (4.1-5.3); Red Cell Distribution Width 13.4 % (12.1-15.1)
[2020-04-30] MEDS: sodium chloride 0.9% 1,000 ML 100 ML IV (06:26)
[2020-04-30 06:47] LABS: Lactic Sepsis W/Reflex 1.1 mmol/L (0.5-2.2)
[2020-04-30 06:48] LABS: Alanine Aminotransferase 20 U/L (0-33); Albumin Level 2.7 g/dL (3.5-5.2); Alkaline Phosphatase 85 IU/L (35-105); Anion Gap 12.4 (5-19); Aspartate Amino Transferase 35 U/L (0-32); Blood Urea Nitrogen 27 mg/dL (8-23); Calcium 8.2 mg/dL (8.5-10.5); Carbon Dioxide 19 mmol/L (22-29); Chloride 113 mmol/L (98-107); Globulin 1.7 g/dL (1.3-4.6); Glucose 81 mg/dL (65-115); Magnesium 1.4 mg/dL (1.7-2.3); Osmolality Calculated 296 mOsm/kg (285-295); Phosphorus 2.1 mg/dL (2.5-4.5); Potassium 3.4 mmol/L (3.5-5.1); Sodium 141 mmol/L (136-145); Total Bilirubin 0.2 mg/dL (0.15-1.2); Total Protein 4.4 g/dL (6.6-8.7)
[2020-04-30 06:59] LABS: Procalcitonin 1.66 ng/mL (0-0.5)
[2020-04-30 07:18] LABS: Magnesium 1.5 mg/dL (1.7-2.3)
--- NOTE | 2020-04-30 07:27 | PC.NURSE ---
SPOKE WITH PHILIPPE CHAVIS THIS MORNING REGARDING CTA OF HEAD/NECK. SHE WANTED TO KNOW WHAT OUR PLAN IS IF THERE IS A BLEED/BLOCKAGE FOUND. I WAS UNABLE TO ANSWER HER QUESTION SO WE WILL WAIT UNTIL DAYSHIFT PHYSICIAN AYDEN PT & DECIDE FURTHER TREATMENT.
[2020-04-30 07:29] LABS: Thyroid Stimulating Hormone 1.62 uIU/mL (0.27-4.20)
[2020-04-30 08:02] LABS: INR 1.75 (0.8-1.2)
[2020-04-30 08:12] LABS: Glucose Point of Care 88 mg/dL (70-110)
--- NOTE | 2020-04-30 09:05 | PC.NURSE ---
0700-RECEIVED REPORT FROM ARMIDA VIDES. STROKE ALERT WAS CALLED ON PT EARLIER THIS MORNING
[2020-04-30 09:48] LABS: Glucose Point of Care 74 mg/dL (70-110)
[2020-04-30] MEDS: potassium chloride premix 100 ML 50 MEQ IV (10:11)
--- NOTE | 2020-04-30 10:16 | PC.NURSE ---
PT NOT ALERT ENOUGH TO SWALLOW MEDS AT THE PRESENT TIME. WILL HOLD FOR NOW & RE-EVALUATE LATER TODAY.
--- NOTE | 2020-04-30 10:17 | PC.CHAP ---
Pastoral Care Encounter/Spiritual Assessment Type of Contact [] Declined panel saw operator visit [] Patient/Family/Request visit [] Outpatient visit [] Follow-up visit [] Physician referral [] Code/Alert [] Routine visit [] Staff referral [] Actively dying [] Patient sleeping [] Family support [] [] Out of room [] Palliative care [] [] Receiving care in room [] Pre-surgical visit [] Trauma [] Long length of stay [] ICU visit [x] Other: ventilator Relational/Emotional Strength [] Patient feels connected with others/family/visitors/staff [] Distress [] Loneliness/isolation [] Abandonment Spirituality of Patient [] Person of Ann [] Attends Jain of their Ann [] Believes in Prayer [] Reads Bible or Anglican materials [] There are Spiritual issues to be addressed American Sign Language Interpreter Interventions [x] Prayer [] Active listening [] Non-anxious presence [] Spiritual/emotional support [] Crisis/trauma care [] Spiritual counseling [] Bereavement support [] Provided bereavement packet [] Provided Bible/devotional materials [] Provided toy/stuffed animal, coloring book to patient or family member [] Provided Communion [] Anointing/[place] [] Salvation [x] Completed spiritual assessment [] Other: Impact on Illness or Injury [] Angry [] Fearful [] Anxious [] Often cries [] Exhaustion [] Unable to work [] Unable to attend episcopalian [] Unable to walk/stand [] Unable to read [] Unable to drive [] Unable to eat/drink [] Unable to sleep [] Unable to be with family [] Patient intubated [] Other: Summary Time spent with patient
--- NOTE | 2020-04-30 11:27 | P.PN_ITS ---
Subjective Subjective: Interval history: Overnight events reviewed. Upon my assessment this morning, patient was able to correctly tell me the name, age, date of and her location as that being in [facility]. She is able to squeeze both of my fingers with her hands, however is unable to lift both of them against gravity. She is also able to wiggle her toes, however unable to lift her right leg against gravity. Per her sister, she has been having some increasing weakness over the past few days, however she does state that up until about a month ago patient was able to self feed and ambulate with assistance. Patient otherwise remains of Levophed since yesterday. Medications: Reviewed: Yes Vitals/I&O/Wt Last Vital Signs Temp 97.3 F L 04/30/20 08:37 Pulse 60 04/30/20 08:37 Resp 12 04/30/20 08:37 BP 108/51 04/30/20 08:37 Pulse Ox 96 04/30/20 08:37 04/29/20 04/30/20 04/30/20 22:59 06:59 14:59 Intake Total 1100 / 1856.547 350 / 2206.547 100 / 100 Output Total 150 / 150 250 / 400 Balance 950 / 1706.547 100 / 1806.547 100 / 100 Weight last 48 hrs Weight 88.904 kg Weight 90.718 kg Physical Exam Narrative: EXAM NARRATIVE: GEN: Awake, alert and oriented x3 CVS: S1S2 N RS: CTA B/L Abd: Soft, nt/nd , bs+ PATIENT SERVICES TECHNICIAN: Alert and oriented x3, though however extremely slow to respond to questions. She is able to squeeze my fingers with both her hands, however unable to lift her arms or legs legs off the bed. Urinary Catheter Management^: Rosario: Cath Placed During This Visit: yes Reason for Continuing Indwelling Catheter: Accurate Measurement of Urinary Output in Critically Ill Patients Urinary Catheter Date of Insertion: 04/28/20 Urinary Catheter Time of Insertion: 23:07 Data : 04/30/20 05:57 04/30/20 05:57 Micro: Microbiology 04/28/20 23:15 Urine Culture - Preliminary Urine Catheterized Gram Negative Rods 04/28/20 22:30 Blood Culture - Preliminary Blood NEGATIVE TO DATE 04/28/20 22:30 Blood Culture - Preliminary Blood NEGATIVE TO DATE 04/29/20 07:45 MRSA Culture - Final Nose A&P Assessment and plan (1) Sepsis secondary to UTI: Status: Acute (2) Hypertension: Status: Acute Qualifiers: Hypertension type: essential hypertension Qualified Code(s): I10 - Essential (primary) hypertension (3) Septic encephalopathy: Status: Acute (4) History of CVA with residual deficit: Status: Acute (5) Atrial fibrillation: Status: Acute Qualifiers: Atrial fibrillation type: unspecified Qualified Code(s): I48.91 - Unspecified atrial fibrillation (6) CVA (cerebral vascular accident): Status: Acute Qualifiers: CVA mechanism: unspecified Qualified Code(s): I63.9 - Cerebral infarction, unspecified Additional A&P Information 84-year-old lady with a history of recurrent UTIs, admitted on April 29 for septic shock likely as a result of urinary tract infection, initially requiring pressor support with Levophed, which has been able to be titrated off with overlap with midodrine. On the night of 1010 she was noted to have an acute change in mental status raising concern for acute stroke. #Sepsis secondary to UTI Patient is currently off Levophed, she has been overlapped with p.o. midodrine and appears to be doing well at this present time. Continue Primaxin empirically. Urine culture thus far with gram-negative rods awaiting further identification and susceptibility testing. Patient also had encephalopathy on admission likely secondary to sepsis. #Acute CVA Overnight patient had an acute change in mental status raising concern for CVA. CT head did not show any acute findings, . Note made of existing encephalomalacia of the right frontal lobe, likely from prior CVAs. CTA of the head and neck was initially planned, but now being deferre due to concerns for GRETTA from contrast also because it is unlikely to change further management. Even with findings of acute stroke, her overall goals of care are not to be too aggressive and as such would not want neurosurgical interventions. Continue existing medications with Eliquis, atorvastatin. At this present time patient is unable to lift her extremities off the bed, continued PT assessment. Swallow eval also ordered. #Atrial fibrillation, currently on Eliquis prophylaxis. # NSTEMI, likely to be type because of supply demand ischemia related to sepsis. Continue aspirin 81 daily. #GRETTA, currently improving #Diabetes mellitus, continue low-dose sliding scale for now Allow natural DVT prophylaxis: Already on Eliquis Transfer to [facility] today. 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
[2020-04-30] MEDS: sennosides-docusate Tablet 1 TAB PO ×2 (11:38→16:59)
[2020-04-30] MEDS: pantoprazole DR 40 mg Tablet PO (11:38)
[2020-04-30] MEDS: apixaban 5 mg Tablet 2.5 MG PO ×2 (11:38→16:59)
[2020-04-30] MEDS: aspirin 81 mg EC Tablet PO (11:39)
[2020-04-30] MEDS: gabapentin 300 mg Capsule PO ×2 (11:39→16:59)
[2020-04-30 11:56] LABS: Glucose Point of Care 85 mg/dL (70-110)
[2020-04-30 11:56] LABS: Glucose Point of Care 139 mg/dL (70-110)
[2020-04-30 16:51] LABS: Glucose Point of Care 99 mg/dL (70-110)
[2020-04-30] MEDS: acetaminophen 325 mg Tablet 650 MG PO (17:00)
[2020-04-30 20:57] LABS: Glucose Point of Care 66 mg/dL (70-110)
[2020-04-30] MEDS: atorvastatin 40 mg Tablet PO (21:28)
[2020-05-01] VITALS: BP 121/72; PULSE 90; RESP 17; TEMP 36.1; O2SAT 97
[2020-05-01 02:39] LABS: Glucose Point of Care 77 mg/dL (70-110)
[2020-05-01] MEDS: sodium chloride 0.9% 1,000 ML 100 ML IV (02:42)
[2020-05-01] MEDS: midodrine 5 mg TABLET 10 MG PO ×3 (02:58→18:47)
[2020-05-01 03:42] VITALS: BP 109/68; PULSE 87; RESP 16; TEMP 36.3; O2SAT 96
[2020-05-01 04:29] LABS: Basophils # 0.1 10^3/uL (0.0-0.1); Eosinophils # 0.6 10^3/uL (0.0-0.8); Eosinophils % 9.4 %; Hematocrit 39.2 % (37.0-47.0); Hemoglobin 12.4 g/dL (11.5-15.3); Lymphocytes # 1.3 10^3/uL (0.8-4.8); Lymphocytes % 19.6 %; Mean Corpuscular HGB Conc 31.6 g/dL (30.0-36.0); Mean Corpuscular Hemoglobin 30.5 pg (28.0-34.0); Mean Corpuscular Volume 96.3 fL (81-99); Mean Platelet Volume 11.4 fL (7.4-10.4); Monocytes # 0.4 10^3/uL (0.2-0.9); Monocytes % 5.4 %; Neutrophils % 64.2 %; Nucleated Red Blood Cells % 0 %; Platelet Count 174 10^3/cmm (130-400); Red Blood Count 4.07 10^6/uL (4.1-5.3); Red Cell Distribution Width 13.7 % (12.1-15.1); White Blood Count 6.7 10^3/uL (4.0-10.0)
[2020-05-01 04:48] LABS: Lactic Sepsis W/Reflex 0.8 mmol/L (0.5-2.2)
[2020-05-01 05:05] LABS: Alanine Aminotransferase 21 U/L (0-33); Albumin Level 2.5 g/dL (3.5-5.2); Alkaline Phosphatase 94 IU/L (35-105); Aspartate Amino Transferase 34 U/L (0-32); Blood Urea Nitrogen 20 mg/dL (8-23); Calcium 7.7 mg/dL (8.5-10.5); Carbon Dioxide 19 mmol/L (22-29); Chloride 115 mmol/L (98-107); Glucose 65 mg/dL (65-115); Magnesium 1.5 mg/dL (1.7-2.3); Osmolality Calculated 293 mOsm/kg (285-295); Sodium 141 mmol/L (136-145); Total Bilirubin 0.2 mg/dL (0.15-1.2); Total Protein 4.5 g/dL (6.6-8.7)
[2020-05-01 05:35] LABS: Anion Gap 10.5 (5-19); Potassium 3.5 mmol/L (3.5-5.1)
[2020-05-01 06:19] LABS: Glucose Point of Care 61 mg/dL (70-110)
[2020-05-01] MEDS: dextrose 5 % 500 ML 100 ML IV (06:41)
[2020-05-01 07:26] VITALS: BP 132/69; PULSE 63; RESP 18; TEMP 36.4; O2SAT 98
[2020-05-01 07:38] LABS: Glucose Point of Care 79 mg/dL (70-110)
[2020-05-01] MEDS: pantoprazole DR 40 mg Tablet PO (09:19)
[2020-05-01] MEDS: sennosides-docusate Tablet 1 TAB PO ×2 (09:19→18:47)
[2020-05-01] MEDS: apixaban 5 mg Tablet 2.5 MG PO ×2 (09:19→18:47)
[2020-05-01] MEDS: gabapentin 300 mg Capsule PO ×2 (09:19→18:47)
[2020-05-01] MEDS: aspirin 81 mg EC Tablet PO (09:19)
[2020-05-01 10:45] LABS: Glucose Point of Care 103 mg/dL (70-110)
[2020-05-01 11:28] VITALS: BP 145/81; PULSE 60; RESP 18; TEMP 36.8; O2SAT 97
--- NOTE | 2020-05-01 12:50 | P.DS_ITS ---
Discharge Providers Date of Admission: 04/29/20 01:00 Date of Discharge: May 01, 2020 Attending Provider at Admission: Jayden Stoddard MD Attending Provider at Discharge: Gely eMi MD Primary Care Provider: Mayur Cueva Jr, MD Diagnoses at Discharge Discharge Diagnosis (1) Sepsis secondary to UTI: Status: Acute (2) Hypertension: Status: Acute Qualifiers: Hypertension type: essential hypertension Qualified Code(s): I10 - Essential (primary) hypertension (3) Septic encephalopathy: Status: Acute (4) History of CVA with residual deficit: Status: Acute (5) Atrial fibrillation: Status: Acute Qualifiers: Atrial fibrillation type: unspecified Qualified Code(s): I48.91 - Unspecified atrial fibrillation (6) CVA (cerebral vascular accident): Status: Acute Qualifiers: CVA mechanism: unspecified Qualified Code(s): I63.9 - Cerebral infarc tion, unspecified Reason for Visit Reason for Visit: POSSIBLE SEPSIS Hospital Course Discharge Summary: 84 year old female with a past medical history of atrial fibrillation on Eliquis, type 2 diabetes mellitus on insulin, hypertension, glaucoma, history of recurrent UTIs, 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 due to concerns for altered mental status, low blood pressure, concerns for UTI. She was eventually found to have a urine culture positive for ESBL E. coli for which she was on treatment with Primaxin, being transitioned to IV ertapenem upon discharge to complete a total 7-day course of antibiotics. Blood cultures have remained negative during the course of admission. CT of the abdomen was performed and hydronephrosis was excluded. She did require some pressor support upon admission for about 24 hours, thereafter Levophed was transitioned to p.o. midodrine and patient's blood pressure has been well maintained on this. She also had septic encephalopathy upon admission which was attributed to sepsis and also discovered to have a type II demand supply mismatch ischemia for which she was continued on medical m anagement. CT of the head was performed upon admission which showed encephalomalacia of the right frontal lobe, likely from past CVA. On the night of April 30 she was noted to be suddenly unresponsive, developed new right side leg hemiparesis as well, NIH stroke scale was at 20, stroke code was activated. CAT scan of the head was performed which did not show any acute changes and hemorrhage was ruled out quickly. Keisha Parker was contacted overnight for the stroke code, she was not considered to be a candidate for TPA given that she is on anticoagulation with Eliquis. It was recommended she continue medical management with aspirin statin and Eliquis and allow for some degree of permissive hypertension. On this night at the time of stroke code patient was unable to open her eyes, had bilateral pupils that were pinpoint and poorly responsive to light, however her mentation did not improve thereafter the next morning and that she is now able to correctly state her name age and is oriented to place. However she is not able to move any extremity including the right side which is reportedly new for her. Speech and swallow eval has also been performed and she has been recommended to continue with a modified dysphagia diet upon discharge. This is specifically recommended to be ground with honey thick liquids. She will need to be monitored for aspiration with thin liquids. Family members including patient's sister Nallely Fenton was updated about patient's hospital course. Patient has improved in terms of her sepsis however is overall weaker than when she first came into the hospital as a result of the new stroke. I have also explained that it is uncertain/ not possible to predict at this time if she will regain functionality on her right side and how long it will take, if ever. She is chronically ill at time of discharge, however best optimized acutely. Physical Exam Narrative: EXAM NARRATIVE: GEN: Awake, alert , chronically ill appearing lady in no acute distress CVS: S1S2 N RS: CTA B/L Abd: Soft, nt/nd , bs+ CERTIFIED OPHTHALMIC TECHNICIAN: awake, alert, left and right sided weakness, able to esters and emulsifiers supervisor fingers Urinary Catheter Management^: Rosario: Cath Placed During This Visit: yes Reason for Continuing Indwelling Catheter: Accurate Measurement of Urinary Output in Critically Ill Patients Urinary Catheter Date of Insertion: 04/28/20 Urinary Catheter Time of Insertion: 23:07 Discharge Data Data Completed and Pending: Completed Studies During Hospitalization Category Date Time Status CT abdomen pelvis wo con 89025 Urge nt Cat Scan 04/29/20 00:[address] head wo con* 7 0450 Stat Cat Scan 04/28/20 22:[address] head wo con* 7 0450 Stat Cat Scan 04/30/20 04:58 Completed XR chest 1V maren ble [id number] Stat Exams 04/28/20 22:26 Completed Pending at discharge Category Date Time Status Blood Culture Sta t Lab 04/28/20 22:30 Results Complete Blood Co unt w/Auto AM LABS Lab 05/02/20 04:00 Ordered Comprehensive Met abolic Panel AM LA BS Lab 05/02/20 04:00 Ordered Lactic Sepsis W/R eflex AM LABS Lab 05/02/20 04:00 Ordered Magnesium AM LABS Lab 05/02/20 04:00 Ordered Labs from last 24 hours 05/01/20 05/01/20 05/01/20 10:24 07:34 06:04 WBC RBC Hgb Hct MCV MCH MCHC RDW Plt Count MPV Neut % (Auto) Lymph % (Auto) Dubois % (Auto) Eos % (Auto) Baso % (Auto) Neut # (Auto) Lymph # (Auto) Dubois # (Auto) Eos # (Auto) Baso # (Auto) Nucleated RBC % (a uto) Nucleated RBCs # Sodium Potassium Chloride Carbon Dioxide Anion Gap BUN Creatinine GFR Calculation Glucose POC Glucose 103 79 61 Calculated Osmolal ity Lactic Acid Calcium Magnesium Total Bilirubin AST ALT Alkaline Phosphata se Total Protein Albumin Globulin 05/01/20 05/01/20 05/01/20 04:18 04:18 04:18 WBC 6.7 RBC 4.07 L Hgb 12.4 Hct 39.2 MCV 96.3 MCH 30.5 MCHC 31.6 RDW 13.7 Plt Count 174 MPV 11.4 H Neut % (Auto) 64.2 Lymph % (Auto) 19.6 Dubois % (Auto) 5.4 Eos % (Auto) 9.4 Baso % (Auto) 1.0 Neut # (Auto) 4.30 Lymph # (Auto) 1.3 Dubois # (Auto) 0.4 Eos # (Auto) 0.6 Baso # (Auto) 0.1 Nucleated RBC % (a uto) 0 Nucleated RBCs # 0.0 Sodium 141 Potassium 3.5 Chloride 115 H Carbon Dioxide 19 L Anion Gap 10.5 BUN 20 Creatinine 0.6 GFR Calculation Not Reportable Glucose 65 POC Glucose Calculated Osmolal ity 293 Lactic Acid 0.8 Calcium 7.7 L Magnesium 1.5 L Total Bilirubin 0.2 AST 34 H ALT 21 Alkaline Phosphata se 94 Total Protein 4.5 L Albumin 2.5 L Globulin 2.0 05/01/20 04/30/20 04/30/20 02:35 20:46 16:42 WBC RBC Hgb Hct MCV MCH MCHC RDW Plt Count MPV Neut % (Auto) Lymph % (Auto) Dubois % (Auto) Eos % (Auto) Baso % (Auto) Neut # (Auto) Lymph # (Auto) Dubois # (Auto) Eos # (Auto) Baso # (Auto) Nucleated RBC % (a uto) Nucleated RBCs # Sodium Potassium Chloride Carbon Dioxide Anion Gap BUN Creatinine GFR Calculation Glucose POC Glucose 77 66 99 Calculated Osmolal ity Lactic Acid Calcium Magnesium Total Bilirubin AST ALT Alkaline Phosphata se Total Protein Albumin Globulin Vitals: Last Vital Signs Temp 98.3 F 05/01/20 11:28 Pulse 60 05/01/20 11:28 Resp 18 05/01/20 11:28 BP 145/81 05/01/20 11:28 Pulse Ox 97 05/01/20 11:28 Discharge Plan Discharge Patient Disposition: Xfer SNF Condition: Fair Prescriptions: New midodrine 5 mg Tablet 10 mg PO Q8H 10 Days Qty: 30 RF: 0 aspirin 81 mg Tablet,Delayed Release (Dr/Ec) 81 mg PO DAILY 30 Days Qty: 30 RF: 0 ertapenem 1 gram recon soln 1 gm IV DAILY 4 Days Qty: 4 RF: 0 Continued ascorbic acid (vitamin C) 500 mg Tablet,Chewable 500 mg PO Q12H RF: 0 Eliquis 2.5 mg Tablet 2.5 mg PO Q12H RF: 0 Xalatan 0.005 % Drops 1 drp ophthalmic (eye) DAILY RF: 0 hydrocodone-acetaminophen 5-325 mg Tablet 1 tab PO Q8H PRN (Reason: Pain) RF: 0 Senna-S 8.6-50 mg Tablet 1 tab PO BID RF: 0 alprazolam 0.25 mg Tablet 0.125 mg PO DAILY RF: 0 Milk of Magnesia 400 mg/5 mL Suspension 30 ml PO DAILY PRN (Reason: Constipation) RF: 0 bisacodyl 10 mg Suppository 10 mg AR DAILY PRN (Reason: Constipation) RF: 0 pantoprazole 40 mg Tablet,Delayed Release (Dr/Ec) 40 mg PO DAILY RF: 0 Camilla-Lanta 200-200-20 mg/5 mL Suspension 30 ml PO Q4H PRN (Reason: Constipation) RF: 0 Tylenol 8 Hour 650 mg Tablet Extended Release 650 mg PO Q6H PRN (Reason: Pain) RF: 0 citalopram 20 mg Tablet 20 mg PO DAILY RF: 0 Tums 200 mg calcium (500 mg) Tablet,Chewable 200 mg PO Q4H PRN (Reason: Acid Reflux) RF: 0 gabapentin 300 mg Capsule 300 mg PO BID RF: 0 estradiol 0.01 % (0.1 mg/gram) Cream See Rx Instructions .ROUTE .COMPLEX RF: 0 metformin 1,000 mg Tablet Extended Release 24hr 1,000 mg PO BID RF: 0 lactulose 10 gram/15 mL Solution 20 g PO BID RF: 0 Lantus Solostar U-100 Insulin 100 units/ml 25 units SUBCUT DAILY RF: 0 Changed atorvastatin 10 mg Tablet 40 mg PO DAILY 30 Days Qty: 30 RF: 0 Held methenamine hippurate 1 gram 1 tab PO Q12H RF: 0 Hold Instructions: Resume on 05/06/20. after ertapenem is completed Macrobid 100 mg Capsule 100 mg PO BID RF: 0 Hold Instructions: Resume on 05/06/20. resume after ertapenem is completed Discharge Orders: Discharge Order (Routine); Ordered 05/01/20 Ordered By: Gely Mei Referrals: [facility] [Outside] Mayur Cueva Jr, MD [Primary Care Provider] - 7-10 days Discharge Diet: As Directed Discharge Activity: Resume usual activity Discharge Attestations Time Spent in Discharge Care*: greater than 30 min Specific Discharge Activities: Specific discharge activities: educating and/or supporting family/caregiver and discussing with case investigator/social workers/dc planners Status at Discharge: Cognitive status at discharge: mildly impaired cognition , Behavioral status at discharge: cooperative , Functional status at discharge: bed bound Overall status at discharge: patient has a new baseline Quality Metrics Clinical Quality Measures During this hospital stay, did patient experience: Stroke Contraindication to Antithrombotic: Medical contraindication Contraindication to Anticoagulation: Anticoagulation prescribed Contraindication to Statin: Statin prescribed Coding Level of Care Code Acute Lead Material Handler for [facility] Fwd Diagnoses Sepsis secondary to UTI A41.9; N39.0 Hypertension I10 Hypertension type: essential hypertension Septic encephalopathy G93.41 History of CVA with residual deficit I69.30 Atrial fibrillation I48.91 Atrial fibrillation type: unspecified CVA (cerebral vascular accident) I63.9 CVA mechanism: unspecified
[2020-05-01] MEDS: ertapenem 1,000 MG in sodium chloride 0.9% (plus) 100 ML 200 MG IV (13:56)
[2020-05-01 15:38] VITALS: BP 92/53; PULSE 87; RESP 18; TEMP 36.4; O2SAT 94
[2020-05-01 17:18] LABS: Glucose Point of Care 84 mg/dL (70-110)
--- NOTE | 2020-05-01 19:44 | PC.NURSE ---
Patients daughter Mendel was asking about visiting with pt since she did not get discharged to SNF today, this nurse discussed situation with hospitalist Dr. King and security about situation, who agreed to allow Mendel, who has been patient's visitor throughout hospital stay, to come in and visit with patient. Mendel agreed to come in through the ER entrance to be screened. All appropriate staff have been notified.
[2020-05-01 20:00] VITALS: BP 100/57; PULSE 70; RESP 19; TEMP 36.6; O2SAT 92
[2020-05-01 21:53] LABS: Glucose Point of Care 70 mg/dL (70-110)
[2020-05-01] MEDS: atorvastatin 40 mg Tablet PO (23:49)
[2020-05-02] VITALS: BP 111/72; PULSE 59; RESP 19; TEMP 36.6; O2SAT 98
[2020-05-02] MEDS: midodrine 5 mg TABLET 10 MG PO ×2 (02:47→11:13)
[2020-05-02 04:00] VITALS: BP 123/76; PULSE 59; RESP 20; TEMP 36.4; O2SAT 98
[2020-05-02 04:20] LABS: Glucose Point of Care 98 mg/dL (70-110)
[2020-05-02 05:46] LABS: Basophils # 0.1 10^3/uL (0.0-0.1); Basophils % 0.7 %; Eosinophils # 0.5 10^3/uL (0.0-0.8); Eosinophils % 6.7 %; Hematocrit 40.4 % (37.0-47.0); Hemoglobin 13.1 g/dL (11.5-15.3); Lymphocytes # 1.5 10^3/uL (0.8-4.8); Lymphocytes % 22.1 %; Mean Corpuscular HGB Conc 32.4 g/dL (30.0-36.0); Mean Corpuscular Hemoglobin 30.3 pg (28.0-34.0); Mean Corpuscular Volume 93.3 fL (81-99); Mean Platelet Volume 10.9 fL (7.4-10.4); Monocytes # 0.4 10^3/uL (0.2-0.9); Monocytes % 5.4 %; Neutrophils # 4.46 10^3/uL (1.8-7.7); Neutrophils % 64.8 %; Nucleated Red Blood Cells % 0 %; Platelet Count 186 10^3/cmm (130-400); Red Blood Count 4.33 10^6/uL (4.1-5.3); Red Cell Distribution Width 13.5 % (12.1-15.1); White Blood Count 6.9 10^3/uL (4.0-10.0)
[2020-05-02 06:05] LABS: Lactic Sepsis W/Reflex 0.9 mmol/L (0.5-2.2)
[2020-05-02 06:06] LABS: Alanine Aminotransferase 17 U/L (0-33); Albumin Level 2.4 g/dL (3.5-5.2); Alkaline Phosphatase 105 IU/L (35-105); Anion Gap 11.5 (5-19); Aspartate Amino Transferase 27 U/L (0-32); Blood Urea Nitrogen 13 mg/dL (8-23); Calcium 8.2 mg/dL (8.5-10.5); Carbon Dioxide 21 mmol/L (22-29); Chloride 110 mmol/L (98-107); Globulin 2.1 g/dL (1.3-4.6); Glucose 91 mg/dL (65-115); Magnesium 1.4 mg/dL (1.7-2.3); Osmolality Calculated 288 mOsm/kg (285-295); Potassium 3.5 mmol/L (3.5-5.1); Sodium 139 mmol/L (136-145); Total Bilirubin 0.3 mg/dL (0.15-1.2); Total Protein 4.5 g/dL (6.6-8.7)
[2020-05-02 07:48] LABS: Glucose Point of Care 95 mg/dL (70-110)
[2020-05-02 08:00] VITALS: BP 128/64; PULSE 82; RESP 22; TEMP 36.4; O2SAT 96
[2020-05-02 10:43] LABS: Glucose Point of Care 104 mg/dL (70-110)
[2020-05-02] MEDS: aspirin 81 mg EC Tablet PO (11:07)
[2020-05-02] MEDS: pantoprazole DR 40 mg Tablet PO (11:08)
[2020-05-02] MEDS: gabapentin 300 mg Capsule PO (11:08)
[2020-05-02] MEDS: sennosides-docusate Tablet 1 TAB PO (11:08)
[2020-05-02] MEDS: apixaban 5 mg Tablet 2.5 MG PO (11:09)
--- NOTE | 2020-05-02 11:39 | P.DS_ITS ---
Discharge Providers Date of Admission: 04/29/20 01:00 Date of Discharge: May 02, 2020 Attending Provider at Admission: Jayden Stoddard MD Attending Provider at Discharge: Gely Mei MD Primary Care Provider: Mayur Cueva Jr, MD Diagnoses at Discharge Discharge Diagnosis (1) Sepsis secondary to UTI: Status: Acute (2) Hypertension: Status: Acute Qualifiers: Hypertension type: essential hypertension Qualified Code(s): I10 - Essential (primary) hypertension (3) Septic encephalopathy: Status: Acute (4) History of CVA with residual deficit: Status: Acute (5) Atrial fibrillation: Status: Acute Qualifiers: Atrial fibrillation type: unspecified Qualified Code(s): I48.91 - Unspecified atrial fibrillation (6) CVA (cerebral vascular accident): Status: Acute Qualifiers: CVA mechanism: unspecified Qualified Code(s): I63.9 - Cerebral infarc tion, unspecified Reason for Visit Reason for Visit: POSSIBLE SEPSIS Hospital Course Discharge Summary: 84 year old female with a past medical history of atrial fibrillation on Eliquis, type 2 diabetes mellitus on insulin, hypertension, glaucoma, history of recurrent UTIs, 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 She was eventually found to have a urine culture positive for ESBL E. coli for which she was on treatment with Primaxin, being transitioned to IV ertapenem upon discharge to complete a total 7-day course of antibiotics. Blood cultures have remained negative during the course of admission. CT of the abdomen was performed and hydronephrosis was excluded. She did require some pressor support upon admission for about 24 hours, thereafter Levophed was transitioned to p.o. midodrine and patient's blood pressure has been well maintained on this. She also had septic encephalopathy upon admission which was attributed to sepsis and also discovered to have a type II demand supply mismatch ischemia for which she was continued on medical m anagement. CT of the head was performed upon admission which showed encephalomalacia of the right frontal lobe, likely from past CVA. On the night of April 30 she was noted to be suddenly unresponsive, developed new right side leg hemiparesis as well, NIH stroke scale was at 20, stroke code was activated. CAT scan of the head was performed which did not show any acute changes and hemorrhage was ruled out quickly. Keisha Parker was contacted overnight for the stroke code, she was not considered to be a candidate for TPA given that she is on anticoagulation with Eliquis. It was recommended she continue medical management with aspirin statin and Eliquis and allow for some degree of permissive hypertension. On this night at the time of stroke code patient was unable to open her eyes, had bilateral pupils that were pinpoint and poorly responsive to light, however her mentation did not improve thereafter the next morning and that she is now able to correctly state her name age and is oriented to place. However she is not able to move any extremity including the right side which is reportedly new for her. Speech and swallow eval has also been performed and she has been recommended to continue with a modified dysphagia diet upon discharge. This is specifically recommended to be ground with honey thick liquids. She will need to be monitored for aspiration with thin liquids. Family members including patient's sister Nallely Fenton was updated about patient's hospital course. Patient has improved in terms of her sepsis however is overall weaker than when she first came into the hospital as a result of the new stroke. I have also explained that it is uncertain/ not possible to predict at this time if she will regain functionality on her right side and how long it will take, if ever. She is chronically ill at time of discharge, however best optimized acutely. She was planned to be discharged on 05/01, however when EMS came to pick her up, it appears that her iv access was taken out accidentally and the NH could not accept without IV line. IV access has been restored this morning for iv ertapenem infusion. It has also been discussed and confirmed with pharmacy that ertapenem 1g can be administered intramuscularly if she is to lose iv access at the nursing facility. 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: awake, alert, left and right sided weakness, able to oil treater fingers Urinary Catheter Management^: Rosario: Cath Placed During This Visit: yes Reason for Continuing Indwelling Catheter: Accurate Measurement of Urinary Output in Critically Ill Patients Urinary Catheter Date of Insertion: 04/28/20 Urinary Catheter Time of Insertion: 23:07 Discharge Data Data Completed and Pending: Completed Studies During Hospitalization Category Date Time Status CT abdomen pelvis wo con [id number] Urge nt Cat Scan 04/29/20 00:[address] head wo con* 7 0450 Stat Cat Scan 04/28/20 22:[address] head wo con* 7 0450 Stat Cat Scan 04/30/20 04:58 Completed XR chest 1V maren ble [id number] Stat Exams 04/28/20 22:26 Completed Pending at discharge Category Date Time Status Blood Culture Sta t Lab 04/28/20 22:30 Results Labs from last 24 hours 05/02/20 05/02/20 05/02/20 10:33 07:25 05:35 WBC RBC Hgb Hct MCV MCH MCHC RDW Plt Count MPV Neut % (Auto) Lymph % (Auto) Edmunds % (Auto) Eos % (Auto) Baso % (Auto) Neut # (Auto) Lymph # (Auto) Edmunds # (Auto) Eos # (Auto) Baso # (Auto) Nucleated RBC % (a uto) Nucleated RBCs # Sodium Potassium Chloride Carbon Dioxide Anion Gap BUN Creatinine GFR Calculation Glucose POC Glucose 104 95 Calculated Osmolal ity Lactic Acid 0.9 Calcium Magnesium Total Bilirubin AST ALT Alkaline Phosphata se Total Protein Albumin Globulin 05/02/20 05/02/20 05/02/20 05:35 05:35 04:16 WBC 6.9 RBC 4.33 Hgb 13.1 Hct 40.4 MCV 93.3 MCH 30.3 MCHC 32.4 RDW 13.5 Plt Count 186 MPV 10.9 H Neut % (Auto) 64.8 Lymph % (Auto) 22.1 Edmunds % (Auto) 5.4 Eos % (Auto) 6.7 Baso % (Auto) 0.7 Neut # (Auto) 4.46 Lymph # (Auto) 1.5 Edmunds # (Auto) 0.4 Eos # (Auto) 0.5 Baso # (Auto) 0.1 Nucleated RBC % (a uto) 0 Nucleated RBCs # 0.0 Sodium 139 Potassium 3.5 Chloride 110 H Carbon Dioxide 21 L Anion Gap 11.5 BUN 13 Creatinine 0.7 GFR Calculation Not Reportable Glucose 91 POC Glucose 98 Calculated Osmolal ity 288 Lactic Acid Calcium 8.2 L Magnesium 1.4 L Total Bilirubin 0.3 AST 27 ALT 17 Alkaline Phosphata se 105 Total Protein 4.5 L Albumin 2.4 L Globulin 2.1 05/01/20 05/01/20 21:25 16:54 WBC RBC Hgb Hct MCV MCH MCHC RDW Plt Count MPV Neut % (Auto) Lymph % (Auto) Edmunds % (Auto) Eos % (Auto) Baso % (Auto) Neut # (Auto) Lymph # (Auto) Edmunds # (Auto) Eos # (Auto) Baso # (Auto) Nucleated RBC % (a uto) Nucleated RBCs # Sodium Potassium Chloride Carbon Dioxide Anion Gap BUN Creatinine GFR Calculation Glucose POC Glucose 70 84 Calculated Osmolal ity Lactic Acid Calcium Magnesium Total Bilirubin AST ALT Alkaline Phosphata se Total Protein Albumin Globulin Vitals: Last Vital Signs Temp 97.5 F L 05/02/20 08:00 Pulse 82 05/02/20 08:00 Resp 22 H 05/02/20 08:00 BP 128/64 05/02/20 08:00 Pulse Ox 96 05/02/20 08:00 Discharge Plan Discharge Patient Disposition: Xfer SNF Condition: Fair Prescriptions: New aspirin 81 mg Tablet,Delayed Release (Dr/Ec) 81 mg PO DAILY 30 Days Qty: 30 RF: 0 midodrine 5 mg Tablet 10 mg PO Q8H 10 Days Qty: 30 RF: 0 ertapenem 1 gram recon soln 1 gm IV DAILY 4 Days Qty: 4 RF: 0 Continued ascorbic acid (vitamin C) 500 mg Tablet,Chewable 500 mg PO Q12H RF: 0 Eliquis 2.5 mg Tablet 2.5 mg PO Q12H RF: 0 Xalatan 0.005 % Drops 1 drp ophthalmic (eye) DAILY RF: 0 hydrocodone-acetaminophen 5-325 mg Tablet 1 tab PO Q8H PRN (Reason: Pain) RF: 0 Senna-S 8.6-50 mg Tablet 1 tab PO BID RF: 0 alprazolam 0.25 mg Tablet 0.125 mg PO DAILY RF: 0 Milk of Magnesia 400 mg/5 mL Suspension 30 ml PO DAILY PRN (Reason: Constipation) RF: 0 bisacodyl 10 mg Suppository 10 mg MN DAILY PRN (Reason: Constipation) RF: 0 pantoprazole 40 mg Tablet,Delayed Release (Dr/Ec) 40 mg PO DAILY RF: 0 Camilla-Lanta 200-200-20 mg/5 mL Suspension 30 ml PO Q4H PRN (Reason: Constipation) RF: 0 Tylenol 8 Hour 650 mg Tablet Extended Release 650 mg PO Q6H PRN (Reason: Pain) RF: 0 citalopram 20 mg Tablet 20 mg PO DAILY RF: 0 Tums 200 mg calcium (500 mg) Tablet,Chewable 200 mg PO Q4H PRN (Reason: Acid Reflux) RF: 0 gabapentin 300 mg Capsule 300 mg PO BID RF: 0 estradiol 0.01 % (0.1 mg/gram) Cream See Rx Instructions .ROUTE .COMPLEX RF: 0 metformin 1,000 mg Tablet Extended Release 24hr 1,000 mg PO BID RF: 0 lactulose 10 gram/15 mL Solution 20 g PO BID RF: 0 Lantus Solostar U-100 Insulin 100 units/ml 25 units SUBCUT DAILY RF: 0 Changed atorvastatin 10 mg Tablet 40 mg PO DAILY 30 Days Qty: 30 RF: 0 Held methenamine hippurate 1 gram 1 tab PO Q12H RF: 0 Hold Instructions: Resume on 05/06/20. after ertapenem is completed Macrobid 100 mg Capsule 100 mg PO BID RF: 0 Hold Instructions: Resume on 05/06/20. resume after ertapenem is completed Discharge Orders: Discharge Order (Routine); Ordered 05/01/20 Ordered By: Gely Mei Referrals: [facility] [Outside] Mayur Cueva Jr, MD [Primary Care Provider] - 7-10 days (Dr Cueva will see patient in [facility] Discharge Diet: As Directed Discharge Activity: Resume usual activity Activity Restrictions/Additional Instructions: ertapenem can be administered intramuscular if she loses iv access Discharge Attestations Time Spent in Discharge Care*: greater than 30 min Status at Discharge: Cognitive status at discharge: mildly impaired cognition , Behavioral status at discharge: cooperative , Functional status at discharge: bed bound Overall status at discharge: patient has a new baseline Quality Metrics Clinical Quality Measures During this hospital stay, did patient experience: Stroke Contraindication to Antithrombotic: Medical contraindication Contraindication to Anticoagulation: Anticoagulation prescribed Contraindication to Statin: Statin prescribed Coding Level of Care Code Acute Senior Product Engineer for g Fwd Diagnoses Sepsis secondary to UTI A41.9; N39.0 Hypertension I10 Hypertension type: essential hypertension Septic encephalopathy G93.41 History of CVA with residual deficit I69.30 Atrial fibrillation I48.91 Atrial fibrillation type: unspecified CVA (cerebral vascular accident) I63.9 CVA mechanism: unspecified
[2020-05-02 12:51] VITALS: BP 128/64; PULSE 82; RESP 22; TEMP 36.4; O2SAT 96
== END 2020-05-02 11:55 | disposition skilled nursing facility (03) | DRG 871 ==
LOC: ER 22:46 → CSU 04-29 01:04 → ICU 04-29 02:08 → MEDSURG 04-30 17:43
PROVIDERS: Emergency Medicine; Internal Medicine; Admitting Provider Family Medicine; Family Provider Family Medicine; PCP Family Medicine; Visit Provider Student in an Organized Health Care Education/Training Program
DX: A41.9 Sepsis, unspecified organism (principal); G93.41 Metabolic encephalopathy; I21.A1 Myocardial infarction type 2; I63.9 Cerebral infarction, unspecified; I69.954 Hemiplegia and hemiparesis following unspecified cerebrovascular disease affecting left non-dominant side; N39.0 Urinary tract infection, site not specified; N17.9 Acute kidney failure, unspecified; E87.2 Acidosis; Z79.01 Long term (current) use of anticoagulants; Z79.891 Long term (current) use of opiate analgesic; Z79.4 Long term (current) use of insulin; I48.91 Unspecified atrial fibrillation; E11.9 Type 2 diabetes mellitus without complications; I10 Essential (primary) hypertension; H40.9 Unspecified glaucoma; Z87.440 Personal history of urinary (tract) infections; B96.20 Unspecified Escherichia coli [E. coli] as the cause of diseases classified elsewhere; Z66 Do not resuscitate; Z79.890 Hormone replacement therapy; R29.720 NIHSS score 20; G93.89 Other specified disorders of brain
CPT/HCPCS: 12345; 36415; 36416; 36600; 51702; 70450; 71045; 74176; 80048; 80053; 81001; 82803; 82962; 83605; 83690; 83735; 84100; 84145; 84443; 84484; 85025; 85610; 87040; 87077; 87086; 87186; 87426; 87641; 92523; 92610; 93005; 96372; 96375; 97161; 99284; J0131; J0743; J1335; J1720; J1815; J2405; J3370; J3475; J3480; J7030; J7050